=== PATIENT | male | born 1970 | race Caucasian/White ===

== ENCOUNTER 2022-12-09 12:28 | Emergency (ER) | payer OTHER ==
[2022-12-09] MEDS ORDERED: ASPIRIN 81 MG CHEWABLE TABLET ONE (12:49)
[2022-12-09 13:00] LABS: Absolute Lymphocytes (CBC) 1.6 K/uL (0.7-4.9); Hematocrit 41.5 % (39.6-49.0); Lymphocytes % 29.9 % (15.3-44.8); MCV 90.4 fL (80-100); MPV 8.4 fL (7.6-11.3); Platelets 161 thou/uL (152-406); RBC Red Blood Cell Count 4.59 M/uL (4.33-5.43)
[2022-12-09 13:15] LABS: Potassium 3.9 mEq/L (3.5-5.1); Troponin High Sensitivity 7.5 pg/mL (<58.9)
--- NOTE | 2022-12-09 13:52 | RAD REPORT ---
EXAM DESCRIPTION: RAD - Chest Single View - 12/09/2022 1:44 pm CLINICAL HISTORY: CHEST PAIN Chest pain. COMPARISON: <Comparisons> FINDINGS: Portable technique limits examination quality. Mild interstitial pulmonary edema. The heart is moderately enlarged. Sternotomy wires present. IMPRESSION: Mild CHF.
--- NOTE | 2022-12-09 16:03 | ER ---
Nurse's Notes [facility] Name: Bharat Gomez Age: 52 yrs Sex: Male : 1970 Arrival Date: 12/09/2022 Time: 12:28 Bed 5 Private MD: Diagnosis: Chest pain, unspecified Presentation: 12/09 12:32 Chief complaint: Patient states: [place] airway constrict approximately 1 hr MEDICAL ASSISTANT DERMATOLOGY while aa5 eating stir grijalva turned into chest pressure and feeling went away with burping. Coronavirus screen: At this time, the client does not indicate any symptoms associated with coronavirus-19. Ebola Screen: Patient denies travel to an Ebola-affected area in the 21 days before illness onset. Initial Sepsis Screen: Does the patient meet any 2 criteria? No. Patient's initial sepsis screen is negative. Does the patient have a suspected source of infection? No. Patient's initial sepsis screen is negative. Risk Assessment: Do you want to hurt yourself or someone else? Patient reports no desire to harm self or others. Onset of symptoms was December 09, 2022. 12:32 Acuity: JM 3 aa5 12:32 Method Of Arrival: EMS: [facility] aa5 Historical: - Allergies: 12:34 No Known Allergies; aa5 - Home Meds: 12:34 metoprolol [Active]; aa5 - PMHx: 12:34 Mitral Valve Repair; aa5 - Immunization history:: Adult Immunizations unknown. - Social history:: Smoking status: Patient denies any tobacco usage or history of. Screenin:32 [facility] ED Fall Risk Assessment (Adult) History of falling in the last 3 months, aa5 including since admission No falls in past 3 months (0 pts) Confusion or Disorientation No (0 pts) Intoxicated or Sedated No (0 pts) Impaired Gait No (0 pts) Mobility Assist Device Used No (0 pt) Altered Elimination No (0 pt) Score/Fall Risk Level 0 - 2 = Low Risk Oriented to surroundings, Maintained a safe environment, Educated pt \T\ family on fall prevention, incl call for assistance when getting out of bed. Abuse screen: Denies threats or abuse. Nutritional screening: No deficits noted. Tuberculosis screening: No symptoms or risk factors identified. Assessment: 12:32 General: Appears comfortable, Behavior is calm, cooperative. Pain: Denies pain. Neuro: aa5 Level of Consciousness is awake, alert, obeys commands, Oriented to person, place, time, situation. Cardiovascular: Denies chest pain, Heart tones S1 S2 present Rhythm is sinus bradycardia. Respiratory: Airway is patent Respiratory effort is even, unlabored, Respiratory pattern is regular, symmetrical. GI: Abdomen is round non-distended, Bowel sounds present X 4 quads. Abd is soft and non tender X 4 quads. Patient currently denies nausea, vomiting. : No signs and/or symptoms were reported regarding the genitourinary system. EENT: No signs and/or symptoms were reported regarding the EENT system. Derm: Skin is pink, warm \T\ dry. Musculoskeletal: Range of motion: intact in all extremities. 14:55 Reassessment: Patient is alert, oriented x 3, equal unlabored respirations, skin aa5 warm/dry/pink. Patient denies pain at this time. Vital Signs: 12:32 BP 162 / 90; Pulse 55; Resp 18 S; Temp 98.2(TE); Pulse Ox 100% on R/A; Weight 108.86 kg aa5 (R); Height 6 ft. 3 in. (R); 14:03 BP 135 / 86; Pulse 44; Resp 18; Pulse Ox 95% ; ld1 15:04 BP 150 / 95; Pulse 66; Resp 17; Pulse Ox 99% on R/A; rs5 15:45 BP 134 / 81; Pulse 55; Resp 17; Pulse Ox 99% on R/A; rs5 16:16 BP 143 / 92; Pulse 71; Resp 18; Pulse Ox 99% on R/A; ld1 12:32 Body Mass Index 30.00 (108.86 kg, 190.5 cm) aa5 ED Course: 12:32 Patient arrived in ED. aa5 12:32 Walter Ferreira DO is Attending Physician. ms3 12:32 Arm band placed on. aa5 12:32 Patient has correct armband on for positive identification. Bed in low position. Call aa5 light in reach. Side rails up X 1. Client placed on continuous cardiac and pulse oximetry monitoring. NIBP monitoring applied. 12:34 Triage completed. aa5 12:35 Anitra Lomax, RN is Primary Nurse. aa5 12:39 Missed attempt(s): 20 gauge in right forearm. Bleeding controlled, band aid applied, aa5 catheter tip intact. 12:39 Initial lab(s) drawn, by me, sent to lab. aa5 13:44 X-ray completed. Portable x-ray completed in exam room. Patient tolerated procedure mh1 well. 13:46 XRAY Chest (1 view) In Process Unspecified. EDMS 15:00 Troponin High Sensitivity Sent. rs5 16:03 Kip Alcantara MD is Referral Physician. ms3 16:16 No provider procedures requiring assistance completed. IV discontinued, intact, ld1 bleeding controlled, No redness/swelling at site. Patient maintains SpO2 saturation greater than 95% on room air. Administered Medications: 12:48 Drug: Aspirin PO Chewable Tablet 324 mg Route: PO; aa5 14:23 Follow up: Response: No adverse reaction aa5 Medication: 16:17 VIS not applicable for this client. ld1 Outcome: 16:03 Discharge ordered by . ms3 16:17 Discharged to home ambulatory. ld1 16:17 Condition: stable 16:17 Discharge instructions given to patient, Instructed on discharge instructions, follow up and referral plans. Demonstrated understanding of instructions, follow-up care. 16:17 Patient left the ED. ld1 Signatures: Dispatcher [employer] EDMS Sharona Gaona 1 Anitra Lomax, RN RN aa5 Walter Ferreira DO DO ms3 Pamela Ferreira, RN RN ld1 Jeremy Butler, RN RN rs5 Corrections: (The following items were deleted from the chart) 12:49 12:32 BP 162 / 90; Pulse 55bpm; Resp 18bpm; Spontaneous; Pulse Ox 100% RA; 108.86 kg aa5 Reported; Height 6 ft. 3 in. Reported; BMI: 30.0; aa5
--- NOTE | 2022-12-09 16:03 | EDPHYS ---
Physician Documentation [facility] Name: Bharat Gomez Age: 52 yrs Sex: Male : 1970 Arrival Date: 12/09/2022 Time: :28 Bed 5 Private MD: ED Physician Walter Ferreira HPI: 12/09 12:34 This 52 yrs old Male presents to ER via EMS with complaints of Chest Pressure. ms3 12:34 52-year-old male with past medical history of mitral valve repair presents for chest ms3 pressure airway constriction that occurred while eating lunch 1 hour prior to arrival. Patient states he has had this in the past when eating food. Patient called for EMS and was taken to occupational health that then referred him to the emergency department. [facility] states patient was in sinus rhythm on monitor with a bradycardia heart rate, blood pressure 139/70, heart rate 49-51. Patient states he burped and his symptoms resolved. Patient denies pain at this time. Patient denies nausea, vomiting.. Historical: - Allergies: 12:34 No Known Allergies; aa5 - Home Meds: 12:34 metoprolol [Active]; aa5 - PMHx: 12:34 Mitral Valve Repair; aa5 - Immunization history:: Adult Immunizations unknown. - Social history:: Smoking status: Patient denies any tobacco usage or history of. ROS: 12:34 Constitutional: Negative for fever, and chills. Eyes: Negative for injury, pain, ms3 redness, and discharge, Neck: Negative for injury, pain, and swelling. 12:34 Abdomen/GI: Negative for abdominal pain, nausea, vomiting, diarrhea, and constipation, MS/Extremity: Negative for injury and deformity, Skin: Negative for injury, rash, and discoloration. 12:34 Cardiovascular: Positive for chest pain. 12:34 Respiratory: Positive for shortness of breath. 12:34 All other systems are negative. Exam: 12:34 Constitutional: This is a well developed, well nourished patient who is awake, alert, ms3 and in no acute distress. Head/Face: Normocephalic, atraumatic. Neck: Trachea midline, no cervical lymphadenopathy. Supple, full range of motion without nuchal rigidity, or vertebral point tenderness. No Meningismus. Chest/axilla: Normal chest wall appearance and motion. Nontender with no deformity. Cardiovascular: Regular rate and rhythm with a normal S1 and S2. No gallops, murmurs, or rubs. Normal PMI, no JVD. No pulse deficits. Respiratory: Lungs have equal breath sounds bilaterally, clear to auscultation and percussion. No rales, rhonchi or wheezes noted. No increased work of breathing, no retractions or nasal flaring. Abdomen/GI: Soft, non-tender, with normal bowel sounds. No distension or tympany. No guarding or rebound. No evidence of tenderness throughout. Skin: Warm, dry with normal turgor. Normal color with no rashes, no lesions, and no evidence of cellulitis. MS/ Extremity: Pulses equal, no cyanosis. Neurovascular intact. Full, normal range of motion. 12:38 ECG was reviewed by the Attending Physician. ms3 Vital Signs: 12:32 BP 162 / 90; Pulse 55; Resp 18 S; Temp 98.2(TE); Pulse Ox 100% on R/A; Weight 108.86 kg aa5 (R); Height 6 ft. 3 in. (R); 14:03 BP 135 / 86; Pulse 44; Resp 18; Pulse Ox 95% ; ld1 15:04 BP 150 / 95; Pulse 66; Resp 17; Pulse Ox 99% on R/A; rs5 15:45 BP 134 / 81; Pulse 55; Resp 17; Pulse Ox 99% on R/A; rs5 16:16 BP 143 / 92; Pulse 71; Resp 18; Pulse Ox 99% on R/A; ld1 12:32 Body Mass Index 30.00 (108.86 kg, 190.5 cm) aa5 MDM: 12:32 Patient medically screened. ms3 12:34 Differential diagnosis: abnormal EKG, acute myocardial infarction, coronary artery ms3 disease chest wall pain, Esophageal stricture. 16:03 HEART Score: History: Slightly Suspicious (0), ECG: Normal (0), Age: > 45 and < 65 ms3 years (1), Risk Factors: No Risk Factors Known (0), Troponin: < or = 1 x Normal Limit (0), Total Score = 1. The patient was given aspirin in the Emergency Department. Data reviewed: vital signs, nurses notes, lab test result(s), EKG, radiologic studies, and as a result, I will discharge patient. Consideration of Admission/Observation Escalation of care including admission/observation considered. Troponin negative x2, HEART score 1. I considered the following discharge prescriptions or medication management in the emergency department Medications were administered in the Emergency Department. See MAR. Independent interpretation of the following test(s) in the Emergency Department EKG: See my EKG interpretation above X-Ray: My interpretation is CXR image reviewed by me and negative. Historians other than the Patient: EMS: [email or web address]. Counseling: I had a detailed discussion with the patient and/or guardian regarding: the historical points, exam findings, and any diagnostic results supporting the discharge/admit diagnosis, lab results, radiology results, the need for outpatient follow up, to return to the emergency department if symptoms worsen or persist or if there are any questions or concerns that arise at home. Response to treatment: the patient's symptoms have resolved after treatment, and as a result, I will discharge patient. Special discussion: Based on the patient's history, exam, and Dx evaluation, there is no indication for emergent intervention or inpatient Tx. It is understood by the patient/guardian that if the Sx's persist or worsen they need to return immediately for re-evaluation. ED course: Discussed labs, chest x-ray, EKG with patient. Patient to follow-up with Dr. Alcantara in 1 to 2 days. Patient understands agrees with plan. All questions were answered. Return precautions given to include worsening symptoms, or any other concerns.. 12/09 12:33 Order name: Basic Metabolic Panel; Complete Time: 13:44 ms3 12/09 12:33 Order name: CBC with Diff; Complete Time: 13:44 ms3 12/09 12:33 Order name: NT PRO-BNP; Complete Time: 13:44 ms3 12/09 12:33 Order name: Troponin HS; Complete Time: 13:44 ms3 12/09 14:23 Order name: Troponin High Sensitivity; Complete Time: 15:46 aa5 12/09 12:33 Order name: XRAY Chest (1 view); Complete Time: 14:06 ms3 12/09 12:33 Order name: EKG; Complete Time: 12:34 ms3 12/09 12:33 Order name: Cardiac monitoring; Complete Time: 12:36 ms3 12/09 12:33 Order name: EKG - Nurse/Tech; Complete Time: 12:36 ms3 12/09 12:33 Order name: IV Saline Lock; Complete Time: 12:48 ms3 12/09 12:33 Order name: Labs collected and sent; Complete Time: 12:48 ms3 12/09 12:33 Order name: O2 Per Protocol; Complete Time: 12:36 ms3 12/09 12:33 Order name: O2 Sat Monitoring; Complete Time: 12:36 ms3 12/09 12:33 Order name: Repeat Cardiac Enzymes at; Complete Time: 14:55 ms3 EC:38 Rate is 53 beats/min. Rhythm is regular. QRS [place] is Normal. PA interval is normal. QRS ms3 interval is normal. Clinical impression: Sinus bradycardia. Interpreted by me. Reviewed by me. Administered Medications: 12:48 Drug: Aspirin PO Chewable Tablet 324 mg Route: PO; aa5 14:23 Follow up: Response: No adverse reaction aa5 Disposition Summary: 12/09/22 16:03 Discharge Ordered Location: Home ms3 Condition: Stable ms3 Diagnosis - Chest pain, unspecified ms3 Followup: ms3 - With: Kip Alcantara MD - When: 1 - 2 days - Reason: Re-evaluation by your physician Discharge Instructions: - Discharge Summary Sheet ms3 - Nonspecific Chest Pain, Adult ms3 Forms: - Medication Reconciliation Form ms3 - Thank You Letter ms3 - Antibiotic Education ms3 - Prescription Opioid Use ms3 - Patient Portal Instructions ms3 - Leadership Thank You Letter ms3 Signatures: Dispatcher [employer] Anitra Shane RN RN aa5 Walter Ferreira DO DO ms3
[2022-12-09 16:21] VITALS: TEMP 98.2
[2022-12-09 16:24] VITALS: O2SAT 99
[2022-12-09 16:26] VITALS: BP 143/92
--- NOTE | 2022-12-10 17:04 | EKG ---
Test Date: 2022-12-09 Test Time: 12:35:35 Molecular Biology Professor: JOSE MEASUREMENT RESULTS: Intervals: Rate: 53 LA: 142 QRSD: 120 QT: 494 QTc: 463 [place]: P: LA: 142 QRS: -7 T: 27 INTERPRETIVE STATEMENTS: Sinus bradycardia Otherwise normal ECG No previous ECG available for comparison Electronically Signed On 12-10-22 17:02:55 CDT by Kip Alcantara
== END 2022-12-09 16:17 | disposition home or self-care (01) ==
LOC: ER 12:28
DX: R07.89 Other chest pain (principal); I50.9 Heart failure, unspecified
CPT/HCPCS: 36415; 71045; 80048; 83880; 84484; 85025; 93005; 99284

== ENCOUNTER 2023-03-07 07:00 | Day surgery (SDC) | payer OTHER ==
[2023-03-04 13:16] LABS: Hematocrit 41.5 % (39.6-49.0); Lymphocytes % 31.4 % (15.3-44.8); MCV 90.4 fL (80-100); MPV 8.4 fL (7.6-11.3); Platelets 189 thou/uL (152-406); RBC Red Blood Cell Count 4.59 M/uL (4.33-5.43)
--- NOTE | 2023-03-04 13:19 | RAD REPORT ---
EXAM DESCRIPTION: RAD - Chest Pa And Lat (2 Views) - 03/04/2023 1:07 pm CLINICAL HISTORY: PRE OP L HEART CATH Chest pain. TECHNIQUE: PA and lateral views of the chest were obtained. FINDINGS: The lungs are hyperexpanded compatible with COPD. The heart is upper limit of normal in si ze. No fracture or aggressive bony process. Sternotomy wires. IMPRESSION: COPD without acute process identified. The USPSTF recommends annual screening for lung cancer with low-dose CT (LDCT) in adults aged 50 to 8 0 years who have a 20 pack-year smoking history and currently smoke or have quit within the past 15 y ears.
[2023-03-04 13:20] LABS: Protime INR 1.05
[2023-03-07] MEDS ORDERED: LIDOCAINE 1% 20 ML MDV ONE (07:06)
[2023-03-07] MEDS ORDERED: HEPA 1000U/500MLS 2,000 UNIT/1,000 ML BAG IV ONE (07:06)
[2023-03-07] MEDS ORDERED: NA CHLORIDE 0.9% 500 ML ONE (07:23)
[2023-03-07] MEDS ORDERED: CLOPIDOGREL 75 MG TABLET ONE (07:28)
[2023-03-07] MEDS ORDERED: MIDAZOLAM HCL 2 MG/2 ML INJ ONE (07:28)
[2023-03-07] MEDS ORDERED: FENTANYL CITR 100 MCG/2 ML ONE (07:28)
[2023-03-07] MEDS ORDERED: VERAPAMIL HCL 10 MG/4 ML VIAL IV ONE (07:28)
[2023-03-07] MEDS ORDERED: HEPARIN 5000 UNIT/ML 1 ML VIAL ONE (07:28)
[2023-03-07] MEDS ORDERED: NITROGLYCERIN/D5W 50 MG/250 ML BTL IV ONE (07:29)
[2023-03-07] MEDS ORDERED: HEPARIN 10,000 UNIT/10 ML VIAL IV ONE (07:29)
[2023-03-07] MEDS ORDERED: TICAGRELOR 90 MG TABLET PO ONE (07:29)
[2023-03-07] MEDS ORDERED: ASPIRIN 325 MG TAB ONE (07:29)
[2023-03-07] MEDS ORDERED: ATROPINE SULF 1 MG/10 ML SYR IV ONE (07:29)
[2023-03-07] MEDS ORDERED: NITROGLYCERIN 100 MCG/ML SYR (for cath lab use only) IV ONE (07:29)
[2023-03-07 07:41] LABS: Potassium 4.5 mEq/L (3.5-5.1)
[2023-03-07 08:41] VITALS: TEMP 98
--- NOTE | 2023-03-07 08:58 | OP ---
Date of Procedure: 03/07/2023 Surgeon: DAR ARGUETA Procedures Performed: 1.Selective coronary angiogram. 2.Left heart catheterization. Indication: Chest pain with abnormal stress test suggestive of unstable angina. Access: Right radial artery, 6-Macedonian, closed with TR band. Complications: None. Bleeding: Less than 20 mL. Total Sedation Time: None. Description Of Procedure: After risks, benefits, and alternatives were explained, the patient agreed to proceed and signed informal consent. The patient was brought into the cardiac catheterization la boratory, prepped and draped in usual sterile fashion. Then, I accessed right radial artery using pe diatric micropuncture kit, placed a 6-Macedonian Slender sheath and took a 5-Macedonian [place] 4.0 catheter ov er a J-wire into the aortic root, engaged the left main and took standard views, and then the RCA and took standard views. The catheter was pushed over the wire into the LV, measured the LVEDP. Pullba ck did not record any gradient. I removed the catheter and the sheath, and placed TR band with good hemostasis. Findings: 1.Left main: Very large and normal. 2.LAD: Very large vessel with 10% proximal and mid segment normal diagonal branches. 3.Left circumflex: Moderate in size with approximate 20% stenosis. 4.RCA: Large and aneurysmal with luminal irregularities. 5.LVEDP at 12 mmHg. 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 Plan: Medical management. /ALMA DELIAL Voice ID: [id number] Report ID: [id number]
[2023-03-07 10:04] VITALS: O2SAT 97
[2023-03-07 10:06] VITALS: BP 122/81
--- NOTE | 2023-03-08 14:25 | EKG ---
Test Date: 2023-03-04 Test Time: 13:56:14 Metal Template Maker: CASEY MEASUREMENT RESULTS: Intervals: Rate: 59 IA: 162 QRSD: 114 QT: 514 QTc: 508 [place]: P: IA: 162 QRS: -12 T: 60 INTERPRETIVE STATEMENTS: Sinus tachycardia with 2nd degree AV block with 2:1 AV conduction Incomplete left bundle branch block Prolonged QT Abnormal ECG Compared to ECG 12/09/2022 12:35:35 Left bundle-branch block now present Prolonged QT interval now present Sinus bradycardia no longer present Electronically Signed On 03-08-23 14:14:37 ANIMATION ARTIST by Kip Alcantara
== END 2023-03-07 10:00 | disposition home or self-care (01) ==
LOC: CCL 07:00
PROVIDERS: ATTEND Internal Medicine
DX: I25.110 Atherosclerotic heart disease of native coronary artery with unstable angina pectoris (principal); I25.41 Coronary artery aneurysm; I34.0 Nonrheumatic mitral (valve) insufficiency; I10 Essential (primary) hypertension; I51.7 Cardiomegaly; Z79.82 Long term (current) use of aspirin; Z79.899 Other long term (current) drug therapy; Z82.49 Family history of ischemic heart disease and other diseases of the circulatory system
CPT/HCPCS: 93005; 85025; 80048; 36415 ×2; 83721; 85610; 85730; 71046; 93458; 76937; C1893; Q9966; J1644; J2001; J2250; J3010; J7040; J0461

== ENCOUNTER 2024-05-14 07:29 | Day surgery (SDC) | payer OTHER ==
[2024-05-11 14:24] LABS: Absolute Eosinophils 0.3 K/uL (0-0.5); Absolute Lymphocytes (CBC) 2.1 K/uL (0.7-4.9); Absolute Monocytes 0.7 K/uL (0.1-1.3); Absolute Neutrophil 3.6 K/uL (1.8-8.0); Basophils % 0.4 % (0-1.3); Eosinophils % 4.9 % (0-4.4); Hematocrit 41.8 % (39.6-49.0); Hemoglobin 14.6 g/dL (13.6-17.9); Lymphocytes % 31.1 % (15.3-44.8); MCH 31.8 pg (27.0-35.0); MPV 8.6 fL (7.6-11.3); Monocytes % 10.6 % (3.3-12.3); Nucleated Red Blood Cells % 0.1 % (0-0); Platelets 215 thou/uL (152-406); RBC Red Blood Cell Count 4.59 M/uL (4.33-5.43); Red Cell Distribution Width 12.9 % (12.1-15.2)
--- NOTE | 2024-05-11 14:37 | RAD REPORT ---
Procedure: Chest Pa And Lat (2 Views) HISTORY:. Preop for cardiac catheterization COMPARISON: 2022 FINDINGS: The lungs appear clear of acute infiltrate. No significant pleural effusion noted. The heart is mildly to moderately enlarged. Post surgical changes involve the chest. IMPRESSION: No acute abnormality is displayed.
[2024-05-11 14:39] LABS: Anion Gap 6.9 mEq/L (5.0-15.0); Potassium 3.9 mEq/L (3.5-5.1)
[2024-05-11 14:43] LABS: PT Prothrombin Time 12.2 SECONDS (9.4-12.5); PTT, Activated Partial Thromb 32.1 SECONDS (24.3-36.9); Protime INR 1.16
--- NOTE | 2024-05-13 11:56 | EKG ---
Test Date: 2024-05-11 Test Time: 14:59:07 Staff Anesthesiologist: CASEY MEASUREMENT RESULTS: Intervals: Rate: 55 CT: 188 QRSD: 108 QT: 496 QTc: 474 [place]: P: 45 CT: 188 QRS: 0 T: 60 INTERPRETIVE STATEMENTS: Sinus bradycardia Otherwise normal ECG Compared to ECG 03/04/2023 13:56:14 Sinus tachycardia no longer present Left bundle-branch block no longer present Prolonged QT interval no longer present Electronically Signed On 05-13-24 11:55:19 ASSURANCE SOURCING MANAGER by Esteban Santillan
[2024-05-14] MEDS ORDERED: NA CHLORIDE 0.9% 500 ML ONE (07:30)
[2024-05-14] MEDS ORDERED: HEPA 1000U/500MLS 2,000 UNIT/1,000 ML BAG IV ONE (08:34)
[2024-05-14] MEDS ORDERED: ATROPINE SULF 1 MG/10 ML SYR IV ONE (08:35)
[2024-05-14] MEDS ORDERED: MIDAZOLAM HCL 2 MG/2 ML INJ ONE (08:35)
[2024-05-14] MEDS ORDERED: HEPARIN 10,000 UNIT/10 ML VIAL IV ONE (08:35)
[2024-05-14] MEDS ORDERED: LIDOCAINE 1% 20 ML MDV ONE (08:35)
[2024-05-14] MEDS ORDERED: VERAPAMIL HCL 10 MG/4 ML VIAL IV ONE (08:35)
[2024-05-14] MEDS ORDERED: TICAGRELOR 90 MG TABLET PO ONE (08:36)
[2024-05-14] MEDS ORDERED: ASPIRIN 325 MG TAB ONE (08:36)
[2024-05-14] MEDS ORDERED: CLOPIDOGREL 75 MG TABLET ONE (08:36)
[2024-05-14] MEDS ORDERED: HEPARIN 5000 UNIT/ML 1 ML VIAL ONE (08:36)
[2024-05-14] MEDS ORDERED: FENTANYL CITR 100 MCG/2 ML ONE (08:37)
[2024-05-14 12:24] VITALS: BP 132/86; O2SAT 98
--- NOTE | 2024-05-25 00:28 | OP ---
Date of Procedure: 05/14/2024 Surgeon: DAR ARGUETA Procedures Performed: 1.Selective coronary angiogram. 2.Left heart catheterization. Indication: Pre-open heart surgery for severe MS. Access: Right radial artery 6-Dominican, closed with TR band. Complications: None. Bleeding: Less than 50 mL. Anesthesia: Total sedation time is 45 minutes, used fentanyl, Versed. Description Of Procedure: After risks, benefits, and alternatives were explained, the patient agreed to procedure and signed informed consent. The [facility], prepped and draped in sterile fashion. Then, I accessed right radial artery using pediatric micropuncture kit, placed 6-Dominican Slender sheath and took 5-Dominican [place] 4 catheter into the aortic root over J-wire and across the aortic valve, measured the LVEDP. Pullback did not record any signif icant gradient. Then, engaged the left main, took standard views, and then the RCA, took standard vi ews and removed the catheter and the sheath and placed TR band with good hemostasis. Findings: 1.Left main is normal. 2.LAD is normal, large and aneurysmal, normal diagonal branches. 3.Left circumflex, large artery and normal. 4.RCA: Large and dominant with proximal 30% stenosis. Rest of the arteries are normal. 5.LVEDP borderline elevated at 12 mmHg. Conclusions: 1.Mild coronary artery disease. 2.Mildly elevated LVEDP. Recommendation: Proceed with surgical intervention on the mitral valve. SR/MODL Voice ID: [id number] Report ID: [id number]
== END 2024-05-14 11:50 | disposition home or self-care (01) ==
LOC: CCL 07:29
PROVIDERS: ATTEND Internal Medicine
DX: I34.2 Nonrheumatic mitral (valve) stenosis (principal); I25.10 Atherosclerotic heart disease of native coronary artery without angina pectoris; I10 Essential (primary) hypertension; E78.2 Mixed hyperlipidemia; Z79.82 Long term (current) use of aspirin; Z79.899 Other long term (current) drug therapy; Z82.49 Family history of ischemic heart disease and other diseases of the circulatory system
CPT/HCPCS: 93005; 85025; 80048; 36415; 85610; 85730; 71046; 93458; 76937; C1893; Q9966; J1644; J2003; J2250; J3010; J7040; 99152; 99153; J0461